=== PATIENT | male | born 2000 | race Two or more races ===

== ENCOUNTER 2023-10-13 18:50 | Emergency (ER) | payer BC, OTHER ==
[~2023-10-13] VITALS: Ht 175.3 cm; Wt 81.6 kg
[2023-10-13 19:22] VITALS: BP 110/85; TEMP 98.6; O2SAT 99
== END 2023-10-13 19:21 | disposition left against medical advice (07) ==
LOC: ER 18:51
DX: T40.2X1A Poisoning by other opioids, accidental (unintentional), initial encounter (principal); R40.4 Transient alteration of awareness; Y92.89 Other specified places as the place of occurrence of the external cause
CPT/HCPCS: A4606; A4663